=== PATIENT | female | born 1950 | race Caucasian/White ===

== ENCOUNTER 2017-04-10 10:40 | Day surgery (SDC) | payer MEDICARE, BC ==
[~2017-04-10 10:40] MED LIST: Dexamethasone IV* 4 MG/ML 1 ML (4 MG) IV SLOW PU ONE; Famotidine IV* 10 MG/ML 2 ML (20 mg) IV ONE
[2017-04-10] MEDS ORDERED: Famotidine IV* 10 MG/ML 2 ML (20 mg) ONE (11:07)
[2017-04-10] MEDS ORDERED: Dexamethasone IV* 4 MG/ML 1 ML (4 MG) ONE (11:08)
[2017-04-10] MEDS ORDERED: Midazolam* 1 MG/ML 2 ML VIAL (2 MG) ONE (12:44)
[2017-04-10] MEDS ORDERED: fentaNYL* 50 MCG/ML 2 ML VIAL (100 MCG VIAL) ONE (12:44)
[2017-04-10] MEDS ORDERED: Lidocaine 2% PF * 5 ML VIAL ONE (12:49)
[2017-04-10] MEDS ORDERED: Ketorolac INJ* 30 MG/ML 1 ML VIAL ONE (12:49)
[2017-04-10] MEDS ORDERED: Propofol* 10 MG/ML 20 ML BTL IV PUSH ONE (12:49)
[2017-04-10] MEDS ORDERED: Bupivacaine 0.25% SDV* 30 ML ONE (13:04)
[2017-04-10] MEDS ORDERED: Acetaminophen TAB* 325 MG PO PRN (13:23)
[2017-04-10] MEDS ORDERED: Ondansetron INJ* 2 MG/ML VIAL IV PRN (13:23)
[2017-04-10] MEDS ORDERED: DiMENhydriNATE IV* 50 MG/ML VIAL IV PUSH PRN (13:23)
[2017-04-10 14:02] VITALS: BP 110/74
--- NOTE | 2017-04-12 14:56 | OP ---
OPERATIVE REPORT: DATE OF OPERATION: 04/10/17 - ANGEL DATE OF : 50 SURGEON: Chun Herzog MD NAVIGATION OFFICER: AIRAM Painting ANESTHESIOLOGIST: Dr. Myers. ANESTHESIA: Local MAC. PRE-OP DIAGNOSIS: Right dorsal wrist cyst. POST-OP DIAGNOSIS: Right fourth compartment extensor tenosynovitis. OPERATIVE PROCEDURE: Excision right dorsal wrist and hand fourth compartment extensor tenosynovitis. INDICATIONS: Larisa is a 66-year-old female whom I first saw in February. She had a mass on the dorsum of the wrist a little bit more centrally located in the tip of a little dorsal wrist ganglion, but this was drained in the office and typical ganglion cyst fluid was aspirated. The patient went home and a few days later, the mass recurred. She came back to my office about a month after I first saw her and wanted it excised. I talked to her about the risks and benefits. She had elected to proceed with surgery. ESTIMATED BLOOD LOSS: 5 mL. COMPLICATIONS: None. FINDINGS: The dorsal hand mass is much more consistent with extensor tenosynovitis and a typical ganglion cyst. DESCRIPTION OF PROCEDURE: Larisa was seen in the preoperative holding area and the correct side, site, and procedure were identified. We came back to the operating room where we had a time-out and hand and wrist were cleaned with alcohol and then I injected the operative site with 0.25% Marcaine without epinephrine. We then prepped and draped the arm in the usual fashion, had a formal time-out. I began by making a transverse incision over the dorsum of the wrist centered over the mass. Dissection was carried down bluntly to preserve any traversing dorsal sensory nerves. There was a low traversing vein that was cauterized. The margins were raised off the mass and was much more yellowish in appearance and not really too consistent with the appearance of a ganglion cyst. I excised this along the margins of it and raised it right off the extensor tendons. It was quite adherent to the tendon and there was one tendon in the fourth dorsal compartment that was starting to show a little bit fraying and inflammation. I went ahead and completed the excision of this off of the tendons. This did go down a little bit deep to the tendons as well and I excised all that until I had cleaned out all of the tenosynovitis and just left the fourth dorsal compartment tendons and deep to that the dorsal wrist capsule. The synovitis did extend down deep to the extensor retinaculum a little bit, so I excised the last couple of millimeters of the extensor retinaculum distally over the fourth dorsal compartment. This enabled me to excise all of the tissue and leave nothing but the clean tendons remaining. Once I had excised all this, I passed it off as a specimen. I then took the cautery device and just cauterized the dorsal wrist capsule as the prior aspiration had brought back typical fluid consistent with a ganglion cyst, so I went ahead and cauterized the dorsal wrist capsule just to try to prevent any potential recurrence of any cyst. Once I had done this and everything was clean and healthy appearing, I irrigated out the wound. The skin was then closed with some 4-0 nylon suture. The wound was dressed with Xeroform, 4x4's, sterile Webril, and a plaster cock-up wrist splint was applied. She was then woken up and taken to the recovery room in stable condition. [id number]/[facility] #: [id number] ARVIND
== END 2017-04-10 14:19 | disposition home or self-care (01) ==
LOC: OREAST 10:40
PROVIDERS: ATTEND Orthopaedic Surgery Hand Surgery
DX: M67.431 Ganglion, right wrist (principal); F17.210 Nicotine dependence, cigarettes, uncomplicated; I10 Essential (primary) hypertension
CPT/HCPCS: 87070; 87073; 87102; 87205; 88304; J1100; J1885; J2250; J2704; J3010

== ENCOUNTER 2017-11-13 07:11 | Day surgery (SDC) | payer MEDICARE, BC ==
--- NOTE | 2017-11-05 22:18 | HP ---
PREOPERATIVE HISTORY AND PHYSICAL: DATE OF ADMISSION: 11/13/17 [facility] PROVIDER: Chun Herzog MD * (DICTATED BY AIRAM YORK) CHIEF COMPLAINT: Right wrist pain. HISTORY OF PRESENT ILLNESS: Larisa is a 67-year-old female, who has had recurrent tenosynovitis of the right wrist. It is not particularly painful. There is no redness or warmth associated with it. However, the patient was advised that she is at risk for impending tendon ruptures and would like to undergo debridement of this. PAST MEDICAL HISTORY: Hypertension, hyperlipidemia, and depression. CURRENT MEDICATIONS: 1. Chantix. 2. Atorvastatin calcium 20 mg daily. 3. Losartan potassium/hydrochlorothiazide 100/25 mg daily. 4. Bupropion SR 150 mg daily. 5. Escitalopram 10 mg p.o. daily. 6. Fluzone high dose 0.5 mL. ALLERGIES: No known drug allergies. PAST SURGICAL HISTORY: Carpal tunnel release and tenosynovectomy of the right wrist. She reports no complications with anesthesia with those procedures. FAMILY HISTORY: Positive for heart disease and high blood pressure. SOCIAL HISTORY: She lives with her . She works as a teacher's assistant. She continues to smoke couple of cigarettes per day. She denies alcoholic beverage use. She does not exercise regularly. REVIEW OF SYSTEMS: A 14-point review of systems was discussed with the patient in the office today at length. All systems were negative except as discussed in the HPI. PHYSICAL EXAMINATION GENERAL: She is a well-developed, well-nourished pleasant female, in no acute distress at rest. She is alert and oriented x3 with appropriate mood and affect. VITAL SIGNS: The patient is 5 feet 2 inches, 184 pounds, blood pressure 126/76 , pulse of 88. HEENT: Normocephalic, atraumatic. Hearing and vision are grossly intact. NECK: Her trachea is midline. RESPIRATORY: Lungs clear to auscultation bilaterally. No wheezes, rales, or rhonchi. CARDIOVASCULAR: Regular rate and rhythm. No murmurs, rubs, or gallops. Normal S1, S2. ABDOMEN: Soft, nondistended, nontender. Normal bowel sounds. EXTREMITIES: Exam of the right upper extremity, incision over the dorsum of the hand is well healed. There is no erythema or warmth. There is definite extensor tenosynovitis distal to the extensor retinaculum and a nodule protruding out proximal to the extensor retinaculum. There is no loss of extension in any of her fingers. Wrist motion is unchanged. Her sensation to light touch is intact. She has normal vascular exam. IMPRESSION: Right wrist tenosynovitis. PLAN: The patient is to undergo right wrist extensor tendon synovectomy by Dr. Herzog on 11/13/17. The risks, benefits, and postoperative course were discussed with the patient at length and she would like to proceed. She was offered a prescription for postoperative pain medication; however, she declined and stated that Tylenol and ibuprofen were sufficient after her last surgery. All of her questions were answered to her full satisfaction. She is understanding to call if she develops problems or concerns. AIRAM YORK [id number]/[facility] #: [id number] MTDYancy
[~2017-11-13 07:11] MED LIST changes: +Buffered Lidocaine 0.9% SYRIN* 5 ML/SYR SYRINGE INTRADERM ONE; -Dexamethasone IV* 4 MG/ML 1 ML (4 MG) IV SLOW PU ONE; -Famotidine IV* 10 MG/ML 2 ML (20 mg) IV ONE
[2017-11-13] MEDS ORDERED: ceFAZolin 2 GM PREMIX (*) 2 GM/50 ML BAG IVPB ONE (07:44)
[2017-11-13] MEDS ORDERED: fentaNYL* 50 MCG/ML 2 ML VIAL (100 MCG VIAL) ONE (09:00)
[2017-11-13] MEDS ORDERED: Midazolam* 1 MG/ML 2 ML VIAL (2 MG) ONE (09:00)
[2017-11-13] MEDS ORDERED: Ketorolac INJ* 30 MG/ML 1 ML VIAL IV PRN (09:36)
[2017-11-13] MEDS ORDERED: fentaNYL* 50 MCG/ML 2 ML VIAL (100 MCG VIAL) IV PRN (09:36)
[2017-11-13] MEDS ORDERED: DiMENhydriNATE IV* 50 MG/ML VIAL IV PUSH PRN (09:36)
[2017-11-13] MEDS ORDERED: Bupivacaine 0.25% SDV* 30 ML ONE (10:13)
[2017-11-13] MEDS ORDERED: Propofol* 10 MG/ML 20 ML BTL IV PUSH ONE (10:39)
[2017-11-13] MEDS ORDERED: Phenylephrine IV* 40 MCG/ML 10 ML SYRINGE ONE (10:39)
[2017-11-13] MEDS ORDERED: Ondansetron INJ* 2 MG/ML VIAL ONE (10:39)
[2017-11-13 12:19] VITALS: BP 96/61
--- NOTE | 2017-11-15 23:36 | OP ---
OPERATIVE REPORT: DATE OF OPERATION: 11/13/17 DATE OF : 50 SURGEON: Chun Herzog MD AIRPORT CONTROL OPERATOR: AIRAM Mcclain ANESTHESIOLOGIST: Dr. Espinal. ANESTHESIA: General. PRE-OP DIAGNOSIS: Recurrent right fourth dorsal compartment flexor tenosynovitis. POST-OP DIAGNOSIS: Recurrent right fourth dorsal compartment flexor tenosynovitis and also impingeme nt of the fourth dorsal compartment tendons at the distal edge of the extensor retinaculum. OPERATIVE PROCEDURE: 1. Right fourth dorsal compartment extensive tenosynovectomy. 2. Transposition of the EPL and EDQ tendons with excision of the distal edge of the extensor retinac ulum. INDICATIONS: Larisa had fourth dorsal compartment extensor tendon tenosynovectomy back in April 10, 2017. Unfortunately, she has had recurrence and it has been consistently enlarging each time I have seen her. There has not been any redness or warmth, but it is enlarging and it has been causing her some mild discomfort. I told her that we probably have to excise it and sent it for full panel of c ultures including fungal and microbacterial cultures as well as to Pathology again. She understood t his and wished to proceed as well. ESTIMATED BLOOD LOSS: 2 mL. COMPLICATIONS: None. FINDINGS: There was significant flexor tenosynovitis, which did not look too aggressive, it was may be a little reddish in color; however, she did have quite a bit of impingement in the distal edge of the extensor tendons with some bunching up of the tendons when I would bring the wrist into extension . I thought this may be contributing to her problem and symptoms. DESCRIPTION OF PROCEDURE: Larisa was seen in the preoperative holding area. We came back to the operating room. The arm was prepped and draped in the usual fashion. A time-out was performed. The arm was exsanguinated with the Esmarch and the tourniquet inflated to 250 mmHg. I made a longitud inal incision in the standard location for dorsal approach to the wrist. Dissection was carried down and full-thickness flaps were raised off of the extensor retinaculum and off of the paratenon dorsal ly protecting the subcutaneous veins and sensory nerves. I then went ahead and excised quite a bit o f the abundant extensor tenosynovitis about the fourth dorsal compartment tendons. This was followed down right to the distal edge of the extensor retinaculum. The extensor retinaculum was opened over the fourth dorsal compartment. The third dorsal compartment was also released and the septum betwee n the 2 compartments excised and the EPL tendon was transposed. I went ahead at this point and excis ed the remainder of the extensor tenosynovitis. This was all divided up into sections and sent for a erobic, anaerobic, fungal, and microbacterial cultures as well as a portion was sent for pathology. Once I had everything completely cleaned, I went ahead and repaired the extensor retinaculum. I then flexed and extended the wrist. There was some impingement of the tendons at the distal edge of the e xtensor retinaculum. I therefore reopened it. I went ahead and excised the septum between the fourt h and fifth dorsal compartment and transposed the EDQ tendon as well. I went ahead and lengthened th e extensor retinaculum a little bit. I closed it up with some 4-0 Ethibond suture. I then flexed an d extended the wrist and the tendons were gliding very nicely and very smoothly without any impingeme nt. The EDQ tendon was again left transposed as well as the EPL. At this point, everything was look ing good. I have taken the extensor tenosynovitis all the way down to the dorsal wrist capsule and e verything was looking completely clean. I irrigated out the wound. Skin was closed with 4-0 Monocry l suture and Steri-Strips. 0.25% Marcaine was infiltrated into the area. Wound was dressed with 4x4 , sterile Webril, and a Cock-Up wrist splint was applied. She was taken to the recovery room in stab le condition. [id number]/[facility] #: [id number]
== END 2017-11-13 12:54 | disposition home or self-care (01) ==
LOC: OREAST 07:11
PROVIDERS: ATTEND Orthopaedic Surgery Hand Surgery
DX: M65.831 Other synovitis and tenosynovitis, right forearm (principal); M25.831 Other specified joint disorders, right wrist; I10 Essential (primary) hypertension; E78.5 Hyperlipidemia, unspecified; F32.9 Major depressive disorder, single episode, unspecified; F17.210 Nicotine dependence, cigarettes, uncomplicated; Z68.31 Body mass index [BMI] 31.0-31.9, adult; M19.90 Unspecified osteoarthritis, unspecified site
CPT/HCPCS: 87070; 87073; 87102; 87116; 87205; 87206; 87529; 87798; 88304; J0690; J2250; J2405; J2704; J3010

== ENCOUNTER 2021-04-04 15:53 | Inpatient (IN) ==
[2021-04-04] MEDS ORDERED: Albuterol HFA INHALER 8 gm MDI INH ONE (16:13)
[2021-04-04] MEDS ORDERED: methylPREDNISolone 125 mg 2 ML VIAL IV ONE (16:14)
[2021-04-04] MEDS ORDERED: NS 0.9% 1000 ml BAG 1,000 ML IV ONE (16:16)
[2021-04-04 16:34] LABS: ABS Eosinophils 0.1 10^3/ul (0-0.6); ABS Lymphocytes 1.5 10^3/ul (1.0-4.8); ABS Monocytes 0.7 10^3/ul (0-0.8); ABS Neutrophils 7.4 10^3/ul (1.5-7.7); Eosinophil % 1.3 %; Hematocrit 51 % (35-47); Hemoglobin 16.5 g/dL (12.0-16.0); Lymphocyte % 15.5 %; Mean Corpuscular HGB Conc 32 g/dL (31-36); Mean Corpuscular Hemoglobin 27 pg (27-31); Mean Corpuscular Volume 84 fL (80-97); Mean Platelet Volume 8.2 fL (7.4-10.4); Nucleated Red Blood Cells % 0.1; Platelet Count 178 10^3/uL (150-450); Red Blood Count 6.08 10^6 /uL (3.70-4.87); Red Cell Distribution Width 18 % (10-15); White Blood Count 9.8 10^3/uL (3.5-10.8)
[2021-04-04 16:46] LABS: Activated Partial Thrombo Time 28.7 seconds (26.0-38.0); INR 1.15 (0.82-1.09)
[2021-04-04 16:53] LABS: Troponin I 0.02 ng/mL (<0.03)
[2021-04-04 16:57] LABS: Albumin 3.6 g/dL (3.2-5.2); Albumin/Globulin Ratio 1.3 (1-3); Calcium 8.6 mg/dL (8.6-10.3); EGFR Non-African American 60.3 (>60); Globulin 2.7 g/dL (2-4); Potassium 4.4 mmol/L (3.5-5.0); Total Bilirubin 0.5 mg/dL (0.2-1.0); Total Protein 6.3 g/dL (6.4-8.9)
[2021-04-04] MEDS ORDERED: Iodixanol (CONTRAST) 320 MG/ML 100 ML SDV IV ONE (17:04)
[2021-04-04] MEDS ORDERED: Furosemide 40 mg/4 ml IV VIAL IV ONE (17:50)
[2021-04-04] MEDS ORDERED: Albuterol/Ipratropium NEB.SOL (2.5/0.5 MG) 3 ML NEB.SOLN INH PRN (20:02)
[2021-04-04 20:14] LABS: Troponin I 0.03 ng/mL (<0.03)
[2021-04-05] MEDS: Enoxaparin 40 MG/0.4 ML SYR SUBCUT SCH ×2 (00:21→21:08)
[2021-04-05 01:02] LABS: Troponin I 0.03 ng/mL (<0.03)
[2021-04-05] MEDS: Mometasone/Formoter 200/5 MDI INH SCH ×3 (04:17→20:01)
[2021-04-05 05:48] LABS: Troponin I 0.03 ng/mL (<0.03)
[2021-04-05] MEDS: Nicotine PATCH 21 MG/24 HR PATCH TRANSDERM SCH (09:36)
[2021-04-05] MEDS: Aspirin EC 81 mg TAB.EC (enteric coated) PO SCH (09:36)
[2021-04-05] MEDS ORDERED: Furosemide 40 mg/4 ml IV VIAL IV SLOW PU ONE (09:51)
[2021-04-05 10:01] LABS: Magnesium 1.8 mg/dL (1.9-2.7)
[2021-04-05 10:14] LABS: C Reactive Protein 11.88 mg/L (<8.01)
[2021-04-05] MEDS ORDERED: Perflutren Lipid Microsphere 3 ML VIAL ONE (10:42)
[2021-04-06] MEDS ORDERED: Magnesium Sulfate 2 gm BAG 2 GM/50 ML BAG IVPB ONE (07:03)
[2021-04-06] MEDS ORDERED: Furosemide 40 mg/4 ml IV VIAL IV SLOW PU ONE (07:16)
[2021-04-06 07:35] LABS: Calcium 8.1 mg/dL (8.6-10.3); Potassium 3.7 mmol/L (3.5-5.0)
[2021-04-06 07:41] LABS: EGFR African American 71.2 (>60); EGFR Non-African American 58.9 (>60)
[2021-04-06] MEDS: Nicotine PATCH 21 MG/24 HR PATCH TRANSDERM SCH (08:05)
[2021-04-06] MEDS: Aspirin EC 81 mg TAB.EC (enteric coated) PO SCH (08:05)
[2021-04-06] MEDS: Mometasone/Formoter 200/5 MDI INH SCH ×2 (08:14→20:44)
[2021-04-06 11:21] LABS: Magnesium 1.9 mg/dL (1.9-2.7)
[2021-04-06] MEDS: Enoxaparin 40 MG/0.4 ML SYR SUBCUT SCH (22:30)
[2021-04-07] MEDS: Aspirin EC 81 mg TAB.EC (enteric coated) PO SCH (08:06)
[2021-04-07] MEDS: Nicotine PATCH 21 MG/24 HR PATCH TRANSDERM SCH (08:06)
[2021-04-07] MEDS ORDERED: Furosemide 40 mg/4 ml IV VIAL IV ONE (09:00)
[2021-04-07 09:03] LABS: Calcium 8.4 mg/dL (8.6-10.3); EGFR African American 78.9 (>60); EGFR Non-African American 65.2 (>60); Magnesium 2.2 mg/dL (1.9-2.7); Potassium 3.8 mmol/L (3.5-5.0)
[2021-04-07] MEDS: Mometasone/Formoter 200/5 MDI INH SCH ×2 (16:17→20:05)
[2021-04-07] MEDS: Enoxaparin 40 MG/0.4 ML SYR SUBCUT SCH (20:13)
[2021-04-08 05:39] LABS: ABS Eosinophils 0.3 10^3/ul (0-0.6); ABS Lymphocytes 1.8 10^3/ul (1.0-4.8); ABS Monocytes 0.8 10^3/ul (0-0.8); ABS Neutrophils 6.6 10^3/ul (1.5-7.7); Eosinophil % 3.1 %; Hematocrit 54 % (35-47); Hemoglobin 17.4 g/dL (12.0-16.0); Lymphocyte % 18.6 %; Mean Corpuscular HGB Conc 32 g/dL (31-36); Mean Corpuscular Hemoglobin 27 pg (27-31); Mean Corpuscular Volume 84 fL (80-97); Mean Platelet Volume 8.2 fL (7.4-10.4); Nucleated Red Blood Cells % 0.1; Platelet Count 193 10^3/uL (150-450); Red Blood Count 6.41 10^6 /uL (3.70-4.87); Red Cell Distribution Width 18 % (10-15); White Blood Count 9.5 10^3/uL (3.5-10.8)
[2021-04-08 05:57] LABS: Calcium 8.4 mg/dL (8.6-10.3); EGFR African American 69.5 (>60); EGFR Non-African American 57.5 (>60); Potassium 3.9 mmol/L (3.5-5.0)
[2021-04-08] MEDS: Aspirin EC 81 mg TAB.EC (enteric coated) PO SCH (08:24)
[2021-04-08] MEDS: Nicotine PATCH 21 MG/24 HR PATCH TRANSDERM SCH (08:24)
[2021-04-08] MEDS: Mometasone/Formoter 200/5 MDI INH SCH ×2 (09:46→19:47)
[2021-04-08] MEDS ORDERED: Furosemide 40 mg/4 ml IV VIAL IV ONE (10:42)
[2021-04-08] MEDS: Enoxaparin 40 MG/0.4 ML SYR SUBCUT SCH (20:31)
[2021-04-09] MEDS: Mometasone/Formoter 200/5 MDI INH SCH ×3 (08:40→18:59)
[2021-04-09] MEDS: Nicotine PATCH 21 MG/24 HR PATCH TRANSDERM SCH (09:41)
[2021-04-09] MEDS: Aspirin EC 81 mg TAB.EC (enteric coated) PO SCH (09:43)
[2021-04-09] MEDS ORDERED: Regadenoson 0.4 MG/5 ML SYRINGE ONE (14:32)
[2021-04-09] MEDS: Enoxaparin 40 MG/0.4 ML SYR SUBCUT SCH (20:30)
[2021-04-10] MEDS ORDERED: NS 0.9% 1000 ml BAG 1,000 ML IV SCH (02:30)
[2021-04-10 06:20] LABS: Calcium 8.5 mg/dL (8.6-10.3); EGFR African American 76.9 (>60); EGFR Non-African American 63.5 (>60); Potassium 3.9 mmol/L (3.5-5.0)
[2021-04-10] MEDS ORDERED: diPHENhydraMINE 25 mg TAB PO PRN (08:00)
[2021-04-10] MEDS: Mometasone/Formoter 200/5 MDI INH SCH ×2 (08:09→21:39)
[2021-04-10] MEDS: Aspirin EC 81 mg TAB.EC (enteric coated) PO SCH (08:27)
[2021-04-10] MEDS ORDERED: VERAPAMIL 2.5 MG/ML 2 ML VIAL ** 5 mg/2 ml ONE ×2 (08:51→14:08)
[2021-04-10] MEDS ORDERED: Midazolam 5 mg/5 ml VIAL 1 mg/ml 5 ml VIAL (5 mg) ONE ×2 (08:51→14:08)
[2021-04-10] MEDS ORDERED: fentaNYL 100 mcg/2 ml 50 MCG/ML VIAL ONE (08:51)
[2021-04-10] MEDS ORDERED: Iohexol 350 (CONTRAST) 200 ML MDV IV ONE ×2 (08:52→14:09)
[2021-04-10] MEDS ORDERED: Lidocaine 1% VIAL 10 MG/ML VIAL ONE ×2 (08:52→14:09)
[2021-04-10] MEDS ORDERED: Heparin 2 UNITS/ML 1000 mls 0 ML IV ONE (08:52)
[2021-04-10] MEDS ORDERED: nitroGLYCERIN DRIP 0 MCG/0 ML BTL ONE (08:52)
[2021-04-10] MEDS ORDERED: Heparin 1,000 UNIT/ML 10 ml (10,000 UNITS) CATHLAB/DIALYSIS ONE ×2 (08:52→14:08)
[2021-04-10] MEDS: Nicotine PATCH 21 MG/24 HR PATCH TRANSDERM SCH ×2 (12:19→21:35)
[2021-04-10] MEDS ORDERED: diPHENhydraMINE 25 mg TAB ONE (13:46)
[2021-04-10] MEDS ORDERED: nitroGLYCERIN DRIP 25,000 MCG/250 ML BTL ONE (14:09)
[2021-04-10] MEDS ORDERED: diPHENhydraMINE IV 50 MG/ML 1 ml VIAL (BENADRYL) ONE (14:09)
[2021-04-10] MEDS ORDERED: Heparin 2 UNITS/ML 1000 mls 1,000 ML IV ONE (14:09)
[2021-04-10 15:56] LABS: POC SO2 93 %
[2021-04-10 15:56] LABS: POC SO2 70 %
[2021-04-10 15:56] LABS: POC SO2 68 %
[2021-04-10] MEDS: Enoxaparin 40 MG/0.4 ML SYR SUBCUT SCH (21:39)
[2021-04-10 21:46] VITALS: BP 114/73
== END 2021-04-11 08:48 | disposition short-term general hospital (02) | DRG 286 ==
LOC: ED 15:53 → MEDTELE 19:56
PROVIDERS: ADMIT Internal Medicine; ATTEND Internal Medicine

== ENCOUNTER 2021-05-01 05:23 | Inpatient (IN) ==
[2021-05-01 06:07] LABS: ABS Eosinophils 0.1 10^3/ul (0-0.6); ABS Lymphocytes 1.1 10^3/ul (1.0-4.8); ABS Monocytes 0.6 10^3/ul (0-0.8); Eosinophil % 0.6 %; Hematocrit 34 % (35-47); Hemoglobin 10.7 g/dL (12.0-16.0); Lymphocyte % 10.4 %; Mean Corpuscular HGB Conc 32 g/dL (31-36); Mean Corpuscular Hemoglobin 27 pg (27-31); Mean Corpuscular Volume 85 fL (80-97); Platelet Count 215 10^3/uL (150-450); Red Blood Count 3.98 10^6 /uL (3.70-4.87); Red Cell Distribution Width 21 % (10-15); White Blood Count 10.9 10^3/uL (3.5-10.8)
[2021-05-01 06:25] LABS: ALT 14 U/L (7-52); AST 15 U/L (13-39); Albumin 3.3 g/dL (3.2-5.2); Albumin/Globulin Ratio 1.1 (1-3); Alkaline Phosphatase 131 U/L (35-149); Anion Gap 9 mmol/L (2-11); Blood Urea Nitrogen 23 mg/dL (6-24); CO2 Carbon Dioxide 26 mmol/L (22-32); Calcium 8.6 mg/dL (8.6-10.3); Chloride 104 mmol/L (101-111); EGFR Non-African American 66.1 (>60); Globulin 3.1 g/dL (2-4); Glucose 152 mg/dL (70-100); Potassium 3.7 mmol/L (3.5-5.0); Sodium 139 mmol/L (135-145); Total Protein 6.4 g/dL (6.4-8.9)
[2021-05-01] MEDS ORDERED: Iodixanol (CONTRAST) 320 MG/ML 100 ML SDV IV ONE (06:49)
[2021-05-01 07:41] LABS: Troponin I 0.07 ng/mL (<0.03)
[2021-05-01] MEDS: SPIRIVA Respimat (tiotropium) 2.5 mcg/inh Inhaler INH SCH (09:13)
[2021-05-01 09:22] LABS: Magnesium 1.6 mg/dL (1.9-2.7)
[2021-05-01 09:28] LABS: Phosphorus 4.4 mg/dL (2.5-5.0)
[2021-05-01] MEDS: Heparin DRIP 25,000 UNITS BAG 25,000 UNITS/500 ML BAG IV SCH (10:12)
[2021-05-01] MEDS: Heparin 5000 UNITS/ML 1 mL VIAL IV PRN (10:13)
[2021-05-01 10:19] LABS: Troponin I 0.15 ng/mL (<0.03)
[2021-05-01] MEDS ORDERED: Perflutren Lipid Microsphere 3 ML VIAL ONE (13:23)
[2021-05-01] MEDS ORDERED: Albuterol/Ipratropium NEB.SOL (2.5/0.5 MG) 3 ML NEB.SOLN INH PRN (14:07)
[2021-05-01 19:23] LABS: Troponin I 0.21 ng/mL (<0.03)
[2021-05-01 23:16] LABS: Troponin I 0.21 ng/mL (<0.03)
[2021-05-02 05:00] LABS: ABS Basophils 0.1 10^3/ul (0-0.2); ABS Eosinophils 0.1 10^3/ul (0-0.6); ABS Lymphocytes 1.3 10^3/ul (1.0-4.8); ABS Neutrophils 8.4 10^3/ul (1.5-7.7); Eosinophil % 1.4 %; Hematocrit 33 % (35-47); Hemoglobin 10.4 g/dL (12.0-16.0); Lymphocyte % 11.8 %; Mean Corpuscular HGB Conc 32 g/dL (31-36); Mean Corpuscular Hemoglobin 27 pg (27-31); Mean Corpuscular Volume 85 fL (80-97); Mean Platelet Volume 8.2 fL (7.4-10.4); Nucleated Red Blood Cells % 0.3; Platelet Count 178 10^3/uL (150-450); Red Blood Count 3.86 10^6 /uL (3.70-4.87); Red Cell Distribution Width 21 % (10-15); White Blood Count 10.8 10^3/uL (3.5-10.8)
[2021-05-02 05:16] LABS: Anion Gap 7 mmol/L (2-11); CO2 Carbon Dioxide 26 mmol/L (22-32); Calcium 8.6 mg/dL (8.6-10.3); Chloride 106 mmol/L (101-111); Magnesium 1.8 mg/dL (1.9-2.7); Potassium 4.2 mmol/L (3.5-5.0); Sodium 139 mmol/L (135-145)
[2021-05-02 05:22] LABS: Blood Urea Nitrogen 20 mg/dL (6-24); EGFR African American 89.7 (>60); EGFR Non-African American 74.1 (>60); Glucose 156 mg/dL (70-100); Phosphorus 4.8 mg/dL (2.5-5.0)
[2021-05-02] MEDS ORDERED: Magnesium Sulfate IV 3 GM in NS 0.9% 100 ml BAG 100 ML IVPB ONE (05:26)
[2021-05-02 05:33] LABS: Troponin I 0.16 ng/mL (<0.03)
[2021-05-02] MEDS: Heparin 5000 UNITS/ML 1 mL VIAL IV PRN (05:37)
[2021-05-02] MEDS ORDERED: NS 0.9% 100 ml BAG 100 ML ONE (05:42)
[2021-05-02] MEDS: SPIRIVA Respimat (tiotropium) 2.5 mcg/inh Inhaler INH SCH (06:51)
[2021-05-02] MEDS ORDERED: Furosemide 20 mg/2 ml IV VIAL IV ONE (07:01)
[2021-05-02] MEDS ORDERED: Furosemide 20 mg/2 ml IV VIAL ONE (07:09)
[2021-05-02] MEDS ORDERED: Furosemide 20 mg/2 ml IV VIAL IV SLOW PU ONE (08:01)
[2021-05-02] MEDS ORDERED: Aspirin EC 81 mg TAB.EC (enteric coated) PO SCH (09:00)
[2021-05-02 09:11] LABS: Urine Appearance Cloudy; Urine Bilirubin Negative (Negative); Urine Blood 3+ (Negative); Urine Color Yellow; Urine Glucose Negative (Negative); Urine Ketones Negative (Negative); Urine Nitrite Negative (Negative); Urine Protein Negative (Negative); Urine Specific Gravity 1.027 (1.002-1.030); Urine Urobilinogen Negative (Negative)
[2021-05-02 09:18] LABS: Urine Bacteria Absent (Absent); Urine Red Blood Cell 3+(>10/hpf) (Absent); Urine Squamous Epithelial Cell Present (Absent); Urine White Blood Cell Absent (Absent)
[2021-05-02] MEDS: Heparin DRIP 25,000 UNITS BAG 25,000 UNITS/500 ML BAG IV SCH (09:39)
[2021-05-02 14:15] VITALS: BP 99/64
== END 2021-05-02 14:50 | disposition short-term general hospital (02) | DRG 175 ==
LOC: ED 05:23 → ICU 08:15
PROVIDERS: ADMIT Internal Medicine; ATTEND Internal Medicine